=== PATIENT | male | born 1980 | race Caucasian/White ===

== ENCOUNTER → 2023-09-30 13:16 | Outpatient (CLI) | payer OTHER, SELFPAY | LOC: RESP 13:18 | PROVIDERS: PCP Internal Medicine; Referring Provider Chiropractor; Visit Provider Chiropractor | DX: J44.0 Chronic obstructive pulmonary disease with (acute) lower respiratory infection (principal) | CPT/HCPCS: 71046; 94060 ==

== ENCOUNTER → 2023-09-30 13:38 | Outpatient (CLI) | payer OTHER, SELFPAY ==
--- NOTE | 2023-09-30 13:41 | DI.RAD.S_ITS ---
PROCEDURE: XR CHEST 2V INDICATIONS: PULMONARY DISEASE TECHNIQUE: 2 views of the chest were acquired. COMPARISON: None. FINDINGS: Surgical changes and devices: None. Lungs and pleura: Lungs are clear. No pleural effusions or pneumothorax. Mediastinum: Mediastinal contours are normal. Heart size is normal. Bones and chest wall: No suspicious bony abnormalities. Soft tissues appear unremarkable. IMPRESSION: No acute cardiopulmonary abnormality is seen. Approved by: Ajith Bond M.D. on 09/30/2023 at 18:38
== END ==
PROVIDERS: PCP Internal Medicine; Referring Provider Chiropractor; Visit Provider Chiropractor
DX: J44.9 Chronic obstructive pulmonary disease, unspecified (principal)
CPT/HCPCS: 71046

== ENCOUNTER → 2023-12-03 11:28 | Outpatient (CLI) | payer OTHER, SELFPAY | PROVIDERS: PCP Internal Medicine; Referring Provider Chiropractor; Visit Provider Chiropractor | DX: J44.0 Chronic obstructive pulmonary disease with (acute) lower respiratory infection (principal) | CPT/HCPCS: 94060; 94729 ==